=== PATIENT | male | born 1945 | race African-American/Black ===

== ENCOUNTER 2023-06-11 11:48 | Emergency (ER) | payer OTHER ==
[~2023-06-11] VITALS: Ht 175.3 cm; Wt 80.0 kg
[2023-06-11 11:53] VITALS: O2SAT 94
[2023-06-11 13:38] LABS: HEMATOCRIT. 39.2 % (42.0-52.0); HEMOGLOBIN. 12.8 g/dL (14.0-18.0); MEAN CORPUSCULAR HEMOGLOBIN 32.8 pg (28.0-32.0); MEAN CORPUSCULAR HGB CONC 32.7 g/dL (31.0-37.0); MEAN CORPUSCULAR VOLUME 100.2 fL (80.0-94.0); MEAN PLATELET VOLUME 8.5 fl (7.4-10.4); PLATELET 258 x1000/uL (130-400); RED BLOOD CELL COUNT 3.91 mill/uL (4.7-6.1); RED CELL DISTRIBUTION WIDTH 13.4 % (11.6-14.6); WHITE BLOOD COUNT 5.6 x1000/uL (4.5-11.0)
[2023-06-11 13:52] LABS: ALANINE AMINOTRANSFERASE 8 IU/L (10-49); ALBUMIN 4.5 g/dL (3.2-4.8); ASPARTATE AMINOTRANSFERASE 19 IU/L (<34); BILIRUBIN TOTAL 0.9 mg/dL (0.1-1.0); CALCIUM 9.6 mg/dL (8.7-10.4); CARBON DIOXIDE 26 mEq/L (21-32); CHLORIDE 102 mEq/L (98-107); CREATININE 1.3 mg/dL (0.6-1.3); GLUCOSE 95 mg/dL (70-105); POTASSIUM 3.9 mEq/L (3.5-5.1); PROTEIN TOTAL 7.8 g/dL (6.0-8.3); SODIUM 133 mEq/L (136-145); TROPONIN I HIGH SENSITIVITY 8 ng/L (3.0-53); UREA NITROGEN BLOOD 14 mg/dL (9-23)
[2023-06-11 14:19] LABS: DIFFERENTIAL COMMENT 1
[2023-06-11 14:53] LABS: PLATELET ESTIMATE NORMAL
[2023-06-11 15:48] VITALS: BP 146/88; PULSE 92; RESP 16; TEMP 98.6
== END 2023-06-11 15:50 | disposition home or self-care (01) ==
LOC: ER 12:10
DX: R55 Syncope and collapse (principal)
CPT/HCPCS: 36415; 71045; 80053; 83880; 84484; 85025; 93005; 99285